=== PATIENT | male | born 1945 | race Caucasian/White ===

== ENCOUNTER 2020-03-12 08:42 | Outpatient (CLI) | payer OTHER, SELFPAY ==
[2020-03-12 09:37] LABS: Basophils Percent Auto 0.3 % (0.2-1.2); Eosinophils Absolute Auto 0.1 K/mm3 (0-0.3); Eosinophils Percent Auto 1.7 % (0-4.4); Hemoglobin 14.4 g/dL (14.0-18.0); Immature Granulocyte Absolute 0.01 K/mm3 (0.00-0.031); Immature Granulocyte Percent A 0.2 % (0-0.5); Lymphocytes Absolute Auto 1.65 K/mm3 (0.9-3.2); Lymphocytes Percent Auto 28.1 % (18.3-44.2); Mean Corpuscular HGB Conc 32.7 g/dl (32-36); Mean Corpuscular Hemoglobin 30.7 pg (26-34); Mean Corpuscular Volume 93.8 fl (80-100); Mean Platelet Volume 10.6 fl (7.4-10.4); Monocytes Absolute Auto 0.4 K/mm3 (0.1-0.6); Neutrophils Absolute Auto 3.7 K/mm3 (1.3-6.7); Neutrophils Percent Auto 62.7 % (45.5-73.1); Platelet Count Result 180 k/mm3 (150-375); Red Blood Count 4.69 M/mm3 (4.6-6.20); White Blood Count 5.9 K/mm3 (4.5-10.0)
[2020-03-12 09:45] LABS: Hemoglobin A1C 6.5 % (<5.7)
[2020-03-12 09:48] LABS: Alanine Aminotransferase 27 U/L (4-50); Albumin Level 4.4 g/dL (3.5-5.1); Alkaline Phosphatase 52 U/L (38-126); Aspartate Amino Transferase 39 U/L (17-59); Bilirubin,Total 0.5 mg/dL (0.2-1.3); Blood Urea Nitrogen 17 mg/dL (9-20); Calcium 9.1 mg/dL (8.4-10.2); Carbon Dioxide 31 mmol/L (22-30); Chloride 101 mmol/L (98-107); Cholesterol 170 mg/dL (0-200); Estimated Glomerular Filt Rate > 60; Glucose 122 mg/dL (75-110); HDL Direct 47 mg/dL; Potassium 4.6 mmol/L (3.4-5.0); Sodium 137 mmol/L (137-145); Triglycerides 137 mg/dL (<150)
[2020-03-12 09:59] LABS: LDL Cholesterol Direct 106 mg/dL
== END 2020-03-12 08:43 | disposition home or self-care (01) ==
DX: E78.5 Hyperlipidemia, unspecified (principal); G62.9 Polyneuropathy, unspecified; M19.90 Unspecified osteoarthritis, unspecified site; R73.03 Prediabetes; I10 Essential (primary) hypertension
CPT/HCPCS: 36415; 80053; 80061; 83036; 85025

== ENCOUNTER 2020-12-13 06:17 | Emergency (ER) | payer MEDICARE, SELFPAY ==
--- NOTE | ~2020-12-13 | CT_ITS ---
EXAMINATION: CT abdomen pelvis w con DATE: 12/13/2020 07:43 INDICATION: Abdominal pain. Umbilical hernia. TECHNIQUE: Computed tomography (CT) of the abdomen and pelvis was performed with 100 mL Omnipaque 350 intravenous contrast. Automated exposure control and iterative reconstruction technique were employe d. The dose-length product was 1421.39 mGy-cm. COMPARISON: None. FINDINGS: The visualized portions of the lung bases demonstrate mild atelectasis. There is mild eleva tion of right hemidiaphragm. No pleural effusion. The heart size is normal. There are coronary artery calcifications. No pericardial effusion. The liver, gallbladder, spleen, pancreas, adrenal glands, a nd right kidney are normal. There are two 3 mm stones in left kidney. There are peripelvic cysts in l eft kidney. There is mild diffuse wall thickening of the bladder, likely secondary to chronic outlet obstruction from the moderately enlarged prostate. There are no dilated loops of bowel. The appendix is normal. There are no pathologically enlarged lymph nodes. There is no free intraperitoneal fluid. There is an umbilical hernia containing fat. There is lumbar dextroscoliosis and severe spondylosis. There are chronic bilateral L5 pars defects. There is 6 mm anterolisthesis of L5 on S1. IMPRESSION: 1. Umbilical hernia containing fat. Reviewed, dictated and finalized at location A.
[2020-12-13 06:22] VITALS: BP 164/84; PULSE 80; RESP 16; TEMP 36.8; O2SAT 100
--- NOTE | 2020-12-13 06:25 | ED.GENADULT ---
HPI - General Adult General Chief complaint: Abdominal Pain <Eric Coe MD - Last Filed: 12/13/20 06:29> Stated complaint: HERNIA PAIN <Eric Coe MD - Last Filed: 12/13/20 06:29> Time Seen by Provider: 12/13/20 06:20 <Eric Coe MD - Last Filed: 12/13/20 06:29> History of Present Illness HPI narrative: Patient is a 75-year-old gentleman who presents to the emergency department with chief complaint of abdominal pain. The patient reports that for about a week he has had some discomfort in the hernia in his umbilical region. Patient states that tonight the umbilical hernia popped out and would not reduce and started to become exquisitely painful. Patient states he had several episodes of nausea and vomiting and also felt, lightheaded and got diaphoretic. The patient states that he called EMS and upon EMS arrival and EMS transporting him to the emergency department the hernia started to come down in size and started to feel better. Upon arrival to the emergency department the patient states he feels much better at this time. <Eric Coe MD - Last Filed: 12/13/20 06:29> Related Data Home medications: Home Medications Medication Instructions Recorded Confirmed amlodipine 5 mg PO DAILY 12/13/20 <Eric Coe MD - Last Filed: 12/13/20 06:29> Allergies/adverse reactions: Allergies Allergy/AdvReac Type Severity Reaction Status Date / Time Penicillins Allergy Unknown Verified 12/13/20 06:36 <Eric Coe MD - Last Filed: 12/13/20 06:29> Review of Systems Review of Systems: Narrative: A 10 system review of systems was completed on the patient and is negative except for what is stated in the HPI. Nursing and ancillary documentation was reviewed. <Eric Coe MD - Last Filed: 12/13/20 06:29> PMFSH Comments Patient has history of hypertension and hyperlipidemia. Surgical history is significant for eye surgery basal cell carcinoma removal and foot surgery Social history the patient denies smoking <Eric Coe MD - Last Filed: 12/13/20 06:29> Exam Narrative: Exam Narrative: GENERAL: Well-appearing, well-nourished, and in no acute distress. HEAD: Normocephalic, atraumatic. EYES: PERRLA and EOMI. ENT: Nares clear, no rhinorrhea or epistaxis. Mucous membranes moist. NECK: Supple. CHEST: Clear to auscultation. No respiratory distress. HEART: Regular rate and rhythm. No murmur heard. Normal peripheral pulses. ABDOMEN: Soft, nontender, nondistended, normal active bowel sounds. There is a freely reducible umbilical hernia EXTREMITIES: Normal range of motion. No edema. SKIN: Warm, dry, no rash. NEURO: No focal deficits. Alert and oriented x3. PSYCH: Normal mood and affect. <Eric Coe MD - Last Filed: 12/13/20 06:29> Course Reevaluation(s) Reevaluation #1: I reviewed labs and CT results with patient and family at bedside. His labs are unremarkable. His umbilical hernia is stilll soft and reducible. He understands he will need to follow up with regarding enlarged prostate, kidney stones and umbilical hernia. <Ericka Nava MD - Last Filed: 12/13/20 17:21> Date: 12/13/20 <Ericka Nava MD - Last Filed: 12/13/20 17:21> Time: 07:58 <Ericka Nava MD - Last Filed: 12/13/20 17:21> Vital Signs Vital signs: Vital Signs Temperature 98.2 F 12/13/20 06:22 Pulse Rate 80 12/13/20 06:22 Respiratory Rate 16 12/13/20 06:22 Blood Pressure 164/84 H 12/13/20 06:22 Pulse Oximetry 100 12/13/20 06:22 Temperature 98.2 F 12/13/20 06:22 Pulse Rate 80 12/13/20 06:22 Respiratory Rate 16 12/13/20 06:22 Blood Pressure 164/84 H 12/13/20 06:22 Pulse Oximetry 100 12/13/20 06:22 <Eric Coe MD - Last Filed: 12/13/20 06:29> Vital Signs Temperature 98.2 F 12/13/20 06:22 Pulse Rate
[2020-12-13 06:44] LABS: Basophils Percent Auto 0.3 % (0.2-1.2); Eosinophils Absolute Auto 0.1 K/mm3 (0-0.3); Eosinophils Percent Auto 1.6 % (0-4.4); Hematocrit 45.6 % (42.0-52.0); Immature Granulocyte Absolute 0.02 K/mm3 (0.00-0.031); Immature Granulocyte Percent A 0.3 % (0-0.5); Lymphocytes Absolute Auto 1.24 K/mm3 (0.9-3.2); Lymphocytes Percent Auto 15.7 % (18.3-44.2); Mean Corpuscular HGB Conc 32.9 g/dl (32-36); Mean Corpuscular Hemoglobin 30.2 pg (26-34); Mean Corpuscular Volume 91.9 fl (80-100); Mean Platelet Volume 10.3 fl (7.4-10.4); Monocytes Absolute Auto 0.4 K/mm3 (0.1-0.6); Monocytes Percent Auto 4.6 % (2.6-8.5); Neutrophils Absolute Auto 6.1 K/mm3 (1.3-6.7); Neutrophils Percent Auto 77.5 % (45.5-73.1); Platelet Count Result 162 k/mm3 (150-375); Red Blood Count 4.96 M/mm3 (4.6-6.20); Red Cell Distribution Width 13.9 % (11.5-14.5); White Blood Count 7.9 K/mm3 (4.5-10.0)
[2020-12-13 06:55] LABS: Alanine Aminotransferase 25 U/L (4-50); Albumin Level 4.3 g/dL (3.5-5.1); Alkaline Phosphatase 55 U/L (38-126); Anion Gap 8 mmol/L (8-16); Aspartate Amino Transferase 32 U/L (17-59); Bilirubin,Total 0.3 mg/dL (0.2-1.3); Blood Urea Nitrogen 13 mg/dL (9-20); Calcium 8.9 mg/dL (8.4-10.2); Carbon Dioxide 28 mmol/L (22-30); Chloride 103 mmol/L (98-107); Estimated CRCL calculation 100 ml/min; Estimated Glomerular Filt Rate > 60; Glucose 149 mg/dL (75-110); Lipase 84 U/L (23-300); Potassium 3.9 mmol/L (3.4-5.0); Sodium 139 mmol/L (137-145)
[2020-12-13 06:56] LABS: INR 0.9; Partial Thromboplastin Time 23.4 SECONDS (22.3-36.8); Prothrombin Time 12.8 Seconds (11.1-14.7)
[2020-12-13] MEDS: SODIUM CHLORIDE 0.9% IV 1,000 ML 999 ML IV CONT (07:07)
[2020-12-13 07:08] LABS: Lactic Acid Reflex 1.7 mmol/L (0.7-2.1)
[2020-12-13 07:26] LABS: Add Urine Microscopic? NO; Appearance Urine Clear (Clear); Bilirubin Urine Negative (Negative); Blood Urine Negative (Negative); Color Urine Yellow (Yellow); Glucose Urine UA Negative (Negative); Ketones Urine Negative (Negative); Leukocyte Esterase Ur Negative LEU/UL (Negative); Mucus Urine Rare /lpf; Nitrate Urine Negative (Negative); Protein Urine Negative (Negative); RBC Urine 0-2 /hpf (0-2); Specific Grav Ur 1.014 (1.001-1.035); Urobilinogen Urine Negative mg/dL (<2.0); WBC Urine 0-3 /hpf
== END 2020-12-13 08:22 | disposition home or self-care (01) ==
PROVIDERS: Emergency Medicine; Emergency Provider General Practice; PCP Internal Medicine
DX: K42.9 Umbilical hernia without obstruction or gangrene (principal); N40.0 Benign prostatic hyperplasia without lower urinary tract symptoms; N20.0 Calculus of kidney; E78.5 Hyperlipidemia, unspecified; I10 Essential (primary) hypertension; Z85.828 Personal history of other malignant neoplasm of skin
CPT/HCPCS: 36415; 74177; 80053; 81003; 83605; 83690; 85025; 85610; 85730; 96365; 99284; J7030; Q9967

== ENCOUNTER 2021-07-04 13:47 | Outpatient (CLI) | payer MEDICARE, SELFPAY ==
--- NOTE | ~2021-07-04 | XR_ITS ---
XR lumbar spine min 4V DATE: 07/04/2021 14:30 INDICATION: Chronic back pain TECHNIQUE: AP, lateral, bilateral oblique views and coned lateral lumbosacral view COMPARISON: None FINDINGS: Diffuse osteopenia. There is approximately 28 degrees rotatory dextroscoliosis of the lumbar spine measured from L1 to L3 . There is severe degenerative disc disease throughout the lumbar and lumbosacral spine. There is prominent degenerative change at the apophyseal joints. There are bilateral L5 pars interarticularis defects with associated grade 1 anterolisthesis at L5-S1 . Otherwise no fracture or bone destruction is detected. The sacroiliac joints are intact. IMPRESSION: 28 degrees rotatory dextroscoliosis and severe degenerative disc disease of the lumbar sp ine Grade 1 anterolisthesis at L5-S1 due to bilateral L5 pars inter-articular is defects Reviewed, dictated and finalized at location A. IMPRESSION: 28 degrees rotatory dextroscoliosis and severe degenerative disc di sease of the lumbar spine Grade 1 anterolisthesis at L5-S1 due to bilateral L5 pars inter-articular is de kulwinder
--- NOTE | ~2021-07-04 | XR_ITS ---
EXAMINATION: XR hand LT min 3V, XR hand RT min 3V DATE: 07/04/2021 14:30 INDICATION: Osteoarthritis with chronic pain TECHNIQUE: 1. Posteroanterior, oblique and lateral views of the left hand were obtained. 2. Posteroanterior, oblique and lateral views of the right hand were obtained. COMPARISON: None. FINDINGS: Bilateral diffuse osteopenia. No fracture or traumatic malalignment. There is joint space narrowing a t multiple joints throughout the bilateral hands which appears primarily nonuniform and communicates with small marginal osteophytes consistent with osteoarthritis. This is severe results in mild ulnar deviation at the right second distal interphalangeal joint. Moderate osteoarthritis at the right four th and fifth distal interphalangeal joints and bilateral second and third metacarpophalangeal joints and mild at the left wrist, bilateral triscaphe, first carpometacarpal and each of the remaining meta carpophalangeal and interphalangeal joints.There are joint centered lucencies, predominantly juxta-ar ticular, at multiple bilateral metacarpophalangeal and a few interphalangeal joints, many with cortic ated margins and overhanging edges. A few additional erosions at the left radial styloid process and distal pole of the left scaphoid. The degree of erosion is disproportionate to the degree of joint sp jyoti narrowing with significant erosions at both sides of the base of the right fifth metacarpophalang eal joint without appreciable joint space narrowing. This pattern would favor a crystalline arthropat hy such as gout over other inflammatory arthritides. IMPRESSION: 1. Moderate polyarticular osteoarthritis with multiple joint centered erosions with appearance and di stribution most suspicious for gout. Reviewed, dictated and finalized at location B. IMPRESSION: 1. Moderate polyarticular osteoarthritis with multiple joint centered erosions with appearance and distribution most suspicious for gout.
--- NOTE | ~2021-07-04 | XR_ITS ---
EXAMINATION: XR foot LT min 3V, XR foot RT min 3V DATE: 07/04/2021 14:31 INDICATION: Osteoarthritis TECHNIQUE: 1. Dorsoplantar, two oblique and lateral views of the left foot were obtained. 2. Dorsoplantar, two oblique and lateral views of the right foot were obtained. COMPARISON: None. FINDINGS: No acute fracture or traumatic malalignment at either foot. Polyarticular osteoarthritis of the bilat eral feet and ankles, moderate severity at the left tibiotalar, right second and third tarsal metatar dominic and first metatarsophalangeal joints and otherwise mild at the majority the remaining joints. The re is a prominent lytic lesion with thin sclerotic margins projecting over the left talar dome. Sugge stion of additional lytic lesions at the right navicular and base of the right second and third metat arsals. Differential for the lytic lesions would include degenerative subchondral cysts or erosion que[place] ch as in the setting of gout. Small amount of heterotopic ossification near the tip the left lateral malleolus likely sequela of chronic ankle sprain. Soft tissues are otherwise unremarkable with no ank le joint effusions. IMPRESSION: 1. Mild to moderate polyarticular osteoarthritis at the bilateral feet and ankles as detailed above. 2. Lytic lesions at the right talar dome and at a few locations in the right midfoot which could repr esent degenerative subchondral cysts or erosions such as in the setting of gout. Reviewed, dictated and finalized at location B. IMPRESSION: 1. Mild to moderate polyarticular osteoarthritis at the bilateral feet and ankl es as detailed above. 2. Lytic lesions at the right talar dome and at a few locations in the right mi dfoot which could represent degenerative subchondral cysts or erosions such as in the setting of gout.
== END 2021-07-04 13:48 | disposition home or self-care (01) ==
LOC: ANHIMG 13:55
DX: M47.817 Spondylosis without myelopathy or radiculopathy, lumbosacral region (principal); M19.072 Primary osteoarthritis, left ankle and foot; M19.071 Primary osteoarthritis, right ankle and foot; M19.042 Primary osteoarthritis, left hand; M19.041 Primary osteoarthritis, right hand; M18.0 Bilateral primary osteoarthritis of first carpometacarpal joints
CPT/HCPCS: 72110; 73130; 73630

== ENCOUNTER 2021-09-27 08:34 | Outpatient (CLI) | payer MEDICARE, SELFPAY ==
--- NOTE | ~2021-09-27 | XR_ITS ---
EXAMINATION: XR foot RT min 3V DATE: 09/27/2021 08:55 INDICATION: Medial right foot pain and swelling TECHNIQUE: Dorsoplantar, two oblique and lateral views of the right foot were obtained. COMPARISON: None. FINDINGS: Alignment is normal. No acute fracture. There is shortening of the lateral side of the head of the se cond middle phalanx which could be developmental or sequela of chronic trauma. Polyarticular osteoart hritis, moderate severity at the second and third tarsal metatarsal, first metatarsophalangeal and se cond distal interphalangeal joint and mild at many of the remaining joints in the mid and forefoot. A gain noted are several lytic lesions within sclerotic margins including at [place] of the tarsal bones , at the heads of the second and fifth metatarsals and at the base of the first proximal phalanx whic h could represent degenerative subchondral cysts or chronic erosion such as in the setting of gout. T iny plantar calcaneal spur. Mild soft tissue swelling about the lateral head of the fifth metatarsal. IMPRESSION: 1. Mild to moderate polyarticular osteoarthritis in the right mid and forefoot. 2. Scattered lytic lesions in the mid and forefoot which could represent degenerative subchondral cys ts although appears particularly at the lateral head of the fifth metatarsal where there is mild over lying soft tissue swelling is more suspicious for erosions in the setting of gout. Reviewed, dictated and finalized at location A. PART LASTER IMPRESSION: 1. Mild to moderate polyarticular osteoarthritis in the right mid and forefoot. 2. Scattered lytic lesions in the mid and forefoot which could represent degene rative subchondral cysts although appears particularly at the lateral head of t he fifth metatarsal where there is mild overlying soft tissue swelling is more suspicious for erosions in the setting of gout.
== END 2021-09-27 08:35 | disposition home or self-care (01) ==
LOC: ANHIMG 08:40
PROVIDERS: PCP Internal Medicine
DX: M79.673 Pain in unspecified foot (principal); M19.071 Primary osteoarthritis, right ankle and foot; M89.9 Disorder of bone, unspecified; M79.89 Other specified soft tissue disorders
CPT/HCPCS: 73630

== ENCOUNTER → 2022-12-26 13:01 | Outpatient (CLI) | payer MEDICARE, SELFPAY ==
--- NOTE | ~2022-12-26 | CT_ITS ---
EXAMINATION: CT abdomen pelvis w con INDICATION: Unspecified abdominal pain TECHNIQUE: Computed tomographic images of the abdomen and pelvis were obtained after the administrati on of 100 cc of Omnipaque 350 intravenous contrast. The dose-length product (DLP) was 1100.79 mGy-cm. Automated exposure control and iterative reconstruction technique were employed. COMPARISON: 12/13/2020 FINDINGS: Minimal dependent atelectasis is present in the lung bases. The heart size is normal. There is calcified coronary artery atherosclerosis. The liver, spleen, pancreas, gallbladder, and adrenal glands are normal. There are peripelvic cysts of the left kidney. There is a 3 mm nonobstructing ston e of the left kidney. The right kidney is unremarkable. No pathologically enlarged abdominal or pelvi c lymph nodes are identified. No free intraperitoneal gas or evidence of bowel obstruction. There is severe lumbar spondylosis. There are chronic L5 pars defects with grade 1 anterolisthesis of L5 on S1 . There has been interval mesh ventral hernia repair. There is a 4.6 x 1.3 cm fluid collection anteri or to the hernia repair and deep to the umbilicus. IMPRESSION: 1. Interval mesh ventral hernia repair with small fluid collection in the anterior abdominal wall kalyn r the mesh which could reflect postoperative seroma. Correlate for clinical signs of infection at thi s site as abscess could have a similar appearance. Reviewed, dictated and finalized at location F. IMPRESSION: 1. Interval mesh ventral hernia repair with small fluid collection in the anter ior abdominal wall near the mesh which could reflect postoperative seroma. Leti elate for clinical signs of infection at this site as abscess could have a kathi lar appearance.
[2022-12-26 13:31] LABS: Estimated Glomerular Filt Rate > 60
== END ==
DX: K43.9 Ventral hernia without obstruction or gangrene (principal)
CPT/HCPCS: 74177; Q9967

== ENCOUNTER 2025-08-17 10:03 | Outpatient (CLI) | payer MEDICARE, SELFPAY ==
--- NOTE | ~2025-08-17 | XR_ITS ---
EXAMINATION: XR ribs RT 2V, 08/17/2025 10:10 OVEN TENDER HISTORY: Benign prostatic hyperplasia with lower urinary tract sympto COMPARISON: No comparisons available. Findings: No acute fracture or malalignment. No significant degenerative changes. Soft tissues unremarkable. Impression: No acute fracture or malalignment. Reviewed, dictated and finalized at location P. TENDER Impression: No acute fracture or malalignment.
== END 2025-08-17 10:04 | disposition home or self-care (01) ==
LOC: MICIMG 10:04
PROVIDERS: PCP Urology; Visit Provider Urology
DX: N40.1 Benign prostatic hyperplasia with lower urinary tract symptoms (principal)
CPT/HCPCS: 71100